=== PATIENT | female | born 1980 | race Caucasian/White ===

== ENCOUNTER → 2016-06-07 | Outpatient (CLI) | payer OTHER ==
[~2016-06-07] MED LIST: ALBUAER INH; EPP3/2 IM
--- NOTE | 2016-06-07 17:15 | DIAGNOSTIC IMAGING REPORT ---
MRI OF THE BRAIN WITHOUT CONTRAST CLINICAL HISTORY: Multiple sclerosis. COMPARISON STUDY: MRI of the brain December 12, 2014. TECHNIQUE: Utilizing a 1.5 Mariah magnet and dedicated coil, multiplanar, multiecho imaging of the brain was performed without IV contrast. Thin cut FLAIR imaging was performed according to the MS protocol. No intravenous contrast was administered due to IV dye allergy. FINDINGS: Ventricular system is normal. Basilar cisterns are patent. There are no extra-axial collections. There has been interval development of several T2 hypertense foci within the white matter consistent with demyelinating plaques since MRI of December 12, 2014. The largest new plaque measures 1.7 cm and is within the left frontal lobe shown on axial image 16 of 22. There is also a new 1.1 cm plaque within the left parietal lobe shown on image 13 and an additional new 0.7 cm plaque within the left parietal lobe shown on image 14. Several old plaques are again noted. The conspicuity of several these has diminished since MRI of December 12, 2014. There is also a new 0.9 cm T2 hyperintense focus within the left posterior aspect of the michaela. Active demyelination is difficult to assess for on this unenhanced examination but the pontine plaque demonstrates possible restricted diffusion. Calvarial signal is maintained. Orbits are unremarkable. IMPRESSION: Interval development of several demyelinating plaques since MRI of December 12, 2014, the largest of which is a 1.7 cm left frontal lobe plaque. In addition, a new 0.9 cm plaque within the left posterior michaela is present. Active demyelination is difficult to assess for given the lack of postcontrast imaging however the pontine plaque demonstrates possible mild restricted diffusion which could indicate active demyelination. Electronically signed by: Keanu Chavarria M.D. 06/07/2016 5:14 PM Dictated Date/Time: 06/07/2016 5:06 PM
--- NOTE | 2016-06-07 17:26 | DIAGNOSTIC IMAGING REPORT ---
MRI OF THE CERVICAL SPINE WITHOUT CONTRAST CLINICAL HISTORY: Multiple sclerosis. COMPARISON: MRI of the cervical spine September 08, 2012. TECHNIQUE: Utilizing a 1.5 Mariah magnet and dedicated coil, multiplanar, multiecho imaging of the cervical spine was performed without IV contrast. No IV contrast was administered due to gadolinium IV contrast allergy. FINDINGS: Alignment of the cervical spine is anatomic. This study is mildly compromised by motion artifact. Vertebral body heights are maintained. There is no intracanalicular mass or fluid collection. Cervical cord signal is suboptimally assessed on this exam. A small focus of increased T2 signal within the right posterior aspect the cord at the C4-C5 level is noted. This has decreased in conspicuity since exam of September 08, 2012. No definite additional areas of signal abnormality are identified within the cervical cord. The central canal and neural foramen are patent with exception of mild narrowing of the left C5-C6 neural foramen due to uncovertebral hypertrophy. An area of demyelination within the michaela is better depicted on the MRI the brain. IMPRESSION: 1. No new areas of demyelination within the cervical cord. 2. Decreased conspicuity of the plaque within the cord at the C4-C5 level since MRI of September 08, 2012. 3. Mild degenerative changes of the cervical spine. Electronically signed by: Keanu Chavarria M.D. 06/07/2016 5:25 PM Dictated Date/Time: 06/07/2016 5:19 PM
== END | disposition home or self-care (01) ==
LOC: C.MRIBC 15:36
PROVIDERS: ATTEND Psychiatry & Neurology Neurology
DX: G35 Multiple sclerosis (principal)

== ENCOUNTER → 2016-06-11 | Outpatient (CLI) | payer OTHER ==
[2016-06-11 17:22] LABS: ALT/SGPT 29 U/L (12-78); AST/SGOT 10 U/L (15-37); BLOOD UREA NITROGEN 11 mg/dl (7-18); BUN/CREATININE RATIO 11.2 (10-20); CALCIUM 8.9 mg/dl (8.5-10.1); CARBON DIOXIDE 26 mmol/L (21-32); CHLORIDE 100 mmol/L (98-107); GLUCOSE 200 mg/dl (70-99); POTASSIUM 4.5 mmol/L (3.5-5.1); SODIUM 138 mmol/L (136-145)
[2016-06-11 17:25] LABS: ALB/GLOB RATIO 1.1 (0.9-2); ALKALINE PHOSPHATASE 60 U/L (45-117); BASO % 0.1 %; BASO ABS # 0.01 K/uL (0-0.2); COMPLETE YES; EOS % 0.1 %; HEMATOCRIT 43.2 % (37-47); IG% 0.9 %; LYMPH % 5.4 %; LYMPH ABS # 0.67 K/uL (1.2-3.4); MEAN CELL VOLUME 90.6 fL (80-100); MEAN CORPUSCULAR HGB CONC 34.3 g/dl (32-36); MEAN PLATELET VOLUME 10.5 fL (7.4-10.4); MONO % 0.4 %; NEUT % 93.1 %; PLATELET COUNT 242 K/uL (130-400); RED BLOOD COUNT 4.77 M/uL (4.2-5.4); WHITE BLOOD COUNT 12.33 K/uL (4.8-10.8)
== END | disposition home or self-care (01) ==
LOC: C.LABBC 13:46
PROVIDERS: ATTEND Psychiatry & Neurology Neurology
DX: G35 Multiple sclerosis (principal)

== ENCOUNTER → 2016-07-01 | Outpatient (CLI) | payer OTHER | END | disposition home or self-care (01) | LOC: C.CPL 12:26 | PROVIDERS: ATTEND Psychiatry & Neurology Neurology | DX: J45.909 Unspecified asthma, uncomplicated (principal) ==

== ENCOUNTER → 2016-07-18 | Outpatient (CLI) | payer OTHER ==
[2016-07-18 10:47] LABS: BASO ABS # 0.05 K/uL (0-0.2); COMPLETE YES; EOS % 2.5 %; HEMATOCRIT 40.5 % (37-47); LYMPH % 25.3 %; LYMPH ABS # 1.32 K/uL (1.2-3.4); MEAN CELL VOLUME 89.2 fL (80-100); MEAN CORPUSCULAR HEMOGLOBIN 30.4 pg (25-34); MEAN CORPUSCULAR HGB CONC 34.1 g/dl (32-36); MEAN PLATELET VOLUME 10.4 fL (7.4-10.4); MONO % 8.6 %; NEUT % 62.6 %; PLATELET COUNT 199 K/uL (130-400); RED BLOOD COUNT 4.54 M/uL (4.2-5.4); WHITE BLOOD COUNT 5.22 K/uL (4.8-10.8)
== END | disposition home or self-care (01) ==
LOC: C.LABBC 07:47
PROVIDERS: ATTEND Physician Assistant
DX: G35 Multiple sclerosis (principal)

== ENCOUNTER → 2016-11-04 | Outpatient (CLI) | payer OTHER ==
--- NOTE | 2016-11-04 11:35 | DIAGNOSTIC IMAGING REPORT ---
CERVICAL WITHOUT CONTRAST CLINICAL HISTORY: 36 years-old Female presenting with multiple sclerosis. TECHNIQUE: Multisequence, multiplanar MR imaging of the cervical spine was performed without the use of intravenous contrast. IV contrast: None. COMPARISON: 06/07/2016. FINDINGS: Localizer images: Unremarkable. Vertebral bodies maintain normal height, alignment, and signal intensity. Intervertebral disc spaces maintained. Minimal uncovertebral hypertrophy at C5-6 results in nonsignificant left neural foraminal narrowing. No other significant degenerative change. No significant neural foraminal or spinal canal narrowing. Spinal cord maintains normal morphology. Previously noted abnormal signal within the spinal cord at the right posterior paramedian aspect of the cord at C4-5 is unchanged in extent (series 6 image 15). No new lesion. Craniocervical junction unremarkable for T2 hyperintense lesion noted in the michaela as on prior exam. Paraspinal soft tissues remarkable for few cysts within the right lobe of the thyroid. Paraspinal musculature normal. IMPRESSION: 1. No new areas of demyelination within the cervical cord. 2. Stable appearance of the lesion at C4-5. 3. Please see separately dictated MR of the brain for intracranial findings. Electronically signed by: Nasir Galvan M.D. 11/04/2016 11:34 AM Dictated Date/Time: 11/04/2016 11:25 AM
--- NOTE | 2016-11-04 12:18 | DIAGNOSTIC IMAGING REPORT ---
BRAIN W/O FOR MS CLINICAL HISTORY: G35 Multiple [id number] mental status change. TECHNIQUE: MRI multi axial acquisition COMPARISON STUDY: 06/07/2016 FINDINGS: The examination shows in general improved signal characteristics as compared to the prior study although a least one focus is increased in prominence. Several small foci of new increased signal are present. The largest focus of increased signal within the left frontal lobe is diminished by 50% in terms of overall volume. A small new focus is identified left paraventricular as well as right periventricular region best seen coronal image 15 as well as 14. These, however do not show significant alteration in signal on diffusion images. The left central pontine focus is considered generally stable although somewhat diminished in signal on the transaxial diffusion images. Smaller foci of increased signal within the optic radiations on the left are at least mildly improved. A new focus is identified within the right optic radiations. These again show no significant increase in diffusion weighted signal. Internal artery canals remains stable. There is no ventricular midline shift. IMPRESSION: 1. Mixed findings compared to the prior study although the overall impression of this study is one of slight improvement in signal characteristics of the largest foci of altered signal, although there are several smaller new foci of increased signal primarily in the right periventricular region. 2. The largest foci within the left paraventricular region are diminished in prominence, although several new or interval foci are identified primarily in the right paraventricular region. 3. Diffusion-weighted images are in general improved from the prior study. The above report was generated using voice recognition software. It may contain grammatical, syntax or spelling errors. Electronically signed by: Vinicio Baer M.D. 11/04/2016 12:17 PM Dictated Date/Time: 11/04/2016 12:08 PM
[2016-11-04 12:35] LABS: BLOOD UREA NITROGEN 9 mg/dl (7-18); BUN/CREATININE RATIO 11.5 (10-20); CALCIUM 8.9 mg/dl (8.5-10.1); CARBON DIOXIDE 28 mmol/L (21-32); CHLORIDE 106 mmol/L (98-107); CREATININE 0.78 mg/dl (0.60-1.20); GLUCOSE 89 mg/dl (70-99); POTASSIUM 4.3 mmol/L (3.5-5.1); SODIUM 140 mmol/L (136-145)
== END | disposition home or self-care (01) ==
LOC: C.MRI 09:47
PROVIDERS: ATTEND Physician Assistant
DX: G35 Multiple sclerosis (principal)

== ENCOUNTER → 2016-11-27 | Outpatient (CLI) | payer OTHER ==
--- NOTE | 2016-11-27 14:53 | DIAGNOSTIC IMAGING REPORT ---
THORACIC SPINE WITHOUT HISTORY: Demyelinating disorder MS TECHNIQUE: Multiplanar multisequence MRI of the thoracic spine was performed without the use of contrast. COMPARISON: None. FINDINGS: Mild degenerative disc change throughout. Signal characteristics of the vertebral bodies are unremarkable. Linear focus of increased signal in the T2-T3 level measuring 1.1 cm in greatest length with transaxial measurement of 3 mm. This is within the central cord. No additional foci identified. Transaxial images are negative for disc herniation or spinal stenosis. IMPRESSION: Increased signal central cord at the T2-T3 level measuring a 1.1 x 0.3 cm. Remainder of the thoracic cord is unremarkable . This focus appears represent a demyelinating disorder focus with no additional abnormalities present. The above report was generated using voice recognition software. It may contain grammatical, syntax or spelling errors. Electronically signed by: Vinicio Baer M.D. 11/27/2016 2:52 PM Dictated Date/Time: 11/27/2016 2:46 PM
== END | disposition home or self-care (01) ==
LOC: C.MRIBC 13:42
PROVIDERS: ATTEND Physician Assistant
DX: G35 Multiple sclerosis (principal)

== ENCOUNTER → 2016-12-10 | Outpatient (CLI) | payer OTHER ==
[2016-12-10 14:17] LABS: LYME DISEASE AB IGM NEG (NEG)
[2016-12-10 14:27] LABS: LYME DISEASE AB IGG NEG (NEG)
== END | disposition home or self-care (01) ==
LOC: C.LABBC 10:44
PROVIDERS: ATTEND Psychiatry & Neurology Neurology
DX: G35 Multiple sclerosis (principal); E55.9 Vitamin D deficiency, unspecified; R53.83 Other fatigue

== ENCOUNTER → 2017-06-03 | Outpatient (CLI) | payer OTHER | END | disposition home or self-care (01) | LOC: C.LABBC 13:44 | PROVIDERS: ATTEND Psychiatry & Neurology Neurology | DX: G35 Multiple sclerosis (principal); E55.9 Vitamin D deficiency, unspecified ==

== ENCOUNTER 2021-12-07 09:47 | Inpatient (IN) ==
--- NOTE | 2021-11-30 15:30 | PAT Medication Instructions ---
Medication Instructions Date of Service November 30, 2021 Home Medications Medication Instructions Recorded ondansetron 4 mg disintegrating 4 - 8 mg PO BID PRN Nausea 30 days 09/21/20 tablet #30 tabs cholecalciferol (vitamin D3) 1,250 50,000 unit PO WEEKLY 30 days #4 02/12/21 mcg (50,000 unit) tablet tabs methocarbamol 500 mg tablet 250 - 500 mg PO BID PRN Muscle 06/04/21 Spasm #60 tabs meclizine 25 mg tablet 25 mg PO TID PRN dizziness #90 tabs 06/25/21 albuterol sulfate 90 mcg/actuation aerosol inhaler 2 puffs inhalation QID PRN Shortness Of Breath Or Wheezing epinephrine 0.3 mg/0.3 mL injection, auto-injector (EpiPen) 0.3 mg IM DIRECTED PRN Allergic Reaction etonogestrel 0.12 mg-ethinyl estradiol 0.015 mg/24 hr vaginal ring (EluRyng) 1 vag ring vaginal DIRECTED ondansetron 4 mg disintegrating tablet 4 - 8 mg PO BID PRN Nausea pentosan polysulfate sodium 100 mg capsule (Elmiron) 100 mg PO TID PRN Other cholecalciferol (vitamin D3) 1,250 mcg (50,000 unit) tablet 50,000 unit PO WEEKLY methocarbamol 500 mg tablet 250 - 500 mg PO BID PRN Muscle Spasm meclizine 25 mg tablet 25 mg PO TID PRN dizziness acetaminophen 500 mg tablet 500 mg PO Q6H PRN Pain multivitamin 2 tab PO QAM Continue as directed epinephrine 0.3 mg/0.3 mL injection, auto-injector (EpiPen) 0.3 mg IM DIRECTED PRN Allergic Reaction (if needed) etonogestrel 0.12 mg-ethinyl estradiol 0.015 mg/24 hr vaginal ring (EluRyng) 1 vag ring vaginal DIRECTED (unless told otherwise by surgeon) ASK your surgeon for instructions pentosan polysulfate sodium 100 mg capsule (Elmiron) 100 mg PO TID PRN Other DO NOT take the morning of surgery cholecalciferol (vitamin D3) 1,250 mcg (50,000 unit) tablet 50,000 unit PO WEEKLY methocarbamol 500 mg tablet 250 - 500 mg PO BID PRN Muscle Spasm multivitamin 2 tab PO QAM Take morning of surgery With a small sip of water, OTHERWISE NOTHING TO EAT OR DRINK AFTER MIDNIGHT: albuterol sulfate 90 mcg/actuation aerosol inhaler 2 puffs inhalation QID PRN Shortness Of Breath Or Wheezing (use if needed; please bring rescue inhaler with you to hospital day of surgery if possible) ondansetron 4 mg disintegrating tablet 4 - 8 mg PO BID PRN Nausea (if needed) meclizine 25 mg tablet 25 mg PO TID PRN dizziness (if needed) acetaminophen 500 mg tablet 500 mg PO Q6H PRN Pain (if needed) Take evening before surgery albuterol sulfate 90 mcg/actuation aerosol inhaler 2 puffs inhalation QID PRN Shortness Of Breath Or Wheezing (if needed) ondansetron 4 mg disintegrating tablet 4 - 8 mg PO BID PRN Nausea (if needed) methocarbamol 500 mg tablet 250 - 500 mg PO BID PRN Muscle Spasm (if needed) meclizine 25 mg tablet 25 mg PO TID PRN dizziness (if needed) acetaminophen 500 mg tablet 500 mg PO Q6H PRN Pain (if needed) Other Notes If you have any questions please call us at [phone] or [phone] or [phone] or [phone]
--- NOTE | 2021-12-03 10:18 | Anesthesiology Consultation ---
Date of Service December 03, 2021 Assessment & Plan (1) Encounter for pre-operative examination: - Neurology office visit (09/11/21): "As you know, she was recently seen by the MS clinic. She notes she is undergoing further work up to determine as to whether she has MS or something that mimics MS. She received IV steroids approximately one month ago and notes this has helped her weakness significantly. Prior to this, she was on oral prednisone. She recently saw an carry in worker and was told she has "three holes in her left retina." She was recommended to see a retina specialist and also has an appointment pending with an milk deliverer.. 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 She has also tried and failed Avonex, Copaxone, Glatiramer acetate, and Tecfidera. Gilenya was deferred due to bradycardia. Kesimpta was defered as she is NELL virus positive.. She developed very bad gastritis with her last IV Solumol treatment and had to go to the ED for a Pepcid cocktail, which did help.. At this point in time, we will await further input from the MS clinic. I do advise she follow with ophthalmology and a retina specialist. She may continue all current Rx as advised. She is to continue to follow with all current providers and their recommendations as advised. We will follow up with her in 2-3 months, and sooner if needed." She was seen by [facility] neurology as second opinion. She states that they reviewed her prior imaging/medications and do feel her symptoms at consistent with MS and recommended trial of Vumerity. Patient states she declined this at this time as she had had reaction with similar derivative MS treatment in the past and wishes to await further evaluation/recommendations at next visit. She feels her MS is currently well controlled- does have occasional muscle spasticity. - COVID screening: Per assessment on 12/03: No known COVID-19 positive contacts or current COVID-19 related symptoms. Travel screen negative. Patient was Covid positive 10/13/21 ([facility] urgent care/report scanned into [employer]). Symptoms at time: cough, sore throat, congestion, nausea, headache, fever > resolved. Pt can proceed as scheduled without additional preop Covid testing or additional Covid contact precautions per 90 days protocol. - Preop test negative (12/03 at [facility]) - Hx "severe" PONV: At anesthesiologist discretion AM DOS if scope patch/preop antiemetics to be given. Chart Review Chart Review: Acceptable Risk for Surgery (pending evaluation AM DOS) and Patient seen in Pre Admission Testing Teaching & Discussion Pre-Anesthesia Teaching/Discussion Notes: Instructed NPO after midnight before surgery,except medications with 15 cc of water. Medication instructions provided according to the [facility] guidelines. History Surgery Operation Date: 12/07/21 13:30 Proposed Procedures p Total Abdominal Hysterectomy - Lucian Richards MD Height/Weight Height: 5 ft 8 in Weight: 115.9 kg Allergies Allergy/AdvReac Type Severity Reaction Status Date / Time peanut Allergy Severe Throat Verified 11/30/21 15:35 closing Sulfa (Sulfonamide Allergy Mild Rash Verified 11/30/21 15:35 Antibiotics) Gadolinium-Containing Allergy Unknown Dyspnea, Verified 11/30/21 15:35 Contrast Medi red rash gluten Allergy Unknown Celiac- GI Verified 11/30/21 15:35 upset pneumococcal vaccine Allergy Unknown Swelling, Verified 11/30/21 15:35 redness, pain soy Allergy Unknown GI symptoms Verified 11/30/21 15:35 wheat Allergy Unknown GI, Rash, Verified 11/30/21 15:35 MS flare (unable to move), resp DI clavulanic acid AdvReac Mild Nausea Verified 11/30/21 15:35 codeine AdvReac Mild Nausea/Vomi Verified 11/30/21 13:22 ting morphine AdvReac Unknown GI distress Verified 11/30/21 15:35 Medications Home Medications Medication Instructions Recorded Confirmed Last Taken albuterol sulfate 90 mcg/actuation 2 puffs inhalation QID PRN 11/06/18 11/30/21 Unknown aerosol inhaler Shortness Of Breath Or Wheezing epinephrine 0.3 mg/0.3 mL 0.3 mg IM DIRECTED PRN Allergic 11/06/18 11/30/21 Unknown injection, auto-injector (EpiPen) Reaction etonogestrel 0.12 mg-ethinyl 1 vag ring vaginal DIRECTED 10/09/19 11/30/21 Unknown estradiol 0.015 mg/24 hr vaginal ring (EluRyng) ondansetron 4 mg disintegrating 4 - 8 mg PO BID PRN Nausea 30 days 09/21/20 11/30/21 Unknown tablet #30 tabs pentosan polysulfate sodium 100 mg 100 mg PO TID PRN Other 11/14/20 11/30/21 Unknown capsule (Elmiron) cholecalciferol (vitamin D3) 1,250 50,000 unit PO WEEKLY 30 days #4 02/12/21 11/30/21 Unknown mcg (50,000 unit) tablet tabs methocarbamol 500 mg tablet 250 - 500 mg PO BID PRN Muscle 06/04/21 11/30/21 Unknown Spasm #60 tabs meclizine 25 mg tablet 25 mg PO TID PRN dizziness #90 tabs 06/25/21 11/30/21 Unknown acetaminophen 500 mg tablet 500 mg PO Q6H PRN Pain 11/30/21 11/30/21 Unknown multivitamin 2 tab PO QAM 11/30/21 11/30/21 Unknown Past Medical History Medical History Adjustment disorder with depressed mood Allergic rhinitis Asthma Atrial premature beats Bradycardia, drug induced Celiac disease Depression with anxiety Hx Tornado's syndrome Per records, per patient told "long jaw bone" during workup for tonsillectomy (+ clicking, no locking or ROM limitations with jaw) Hearing loss History of COVID-19 Dx 10/13/21 ([facility] urgent care/report scanned into [employer]) Symptoms at time: cough, sore throat, congestion, nausea, headache, fever > resolved Dx 03/2021 ([facility]) Interstitial cystitis Multiple sclerosis Follows with Dr. Villatoro/Maranda Jean ([facility] [place]) Muscle spasm Neuropathic pain From MS (right side predominant, trunk, right lower leg) Obesity Otosclerosis Vertigo Exercise / Class Metabolic Activity II 4-5 Yardwork/Stairs/Walk up hill (one FS (no CP, rare SOB)) Past Family History Family History Grandmother (Maternal) Myocardial infarction Grandmother (Paternal) Brain tumor Denies family history of Ovarian cancer Prostate cancer Breast cancer Colorectal cancer Past Surgical History Surgical History History of colonoscopy x2 History of esophagogastroduodenoscopy (EGD) History of wisdom tooth extraction Hx of tonsillectomy Nausea and vomiting after administration of anesthetic agent "Severe" S/P dilation and curettage S/P foot surgery, right S/P laparoscopy S/P shoulder surgery S/P wisdom tooth extraction Past Anesthesia History Other (Perioperative bradycardia during tonsillectomy (20+ years ago)) History of PONV History of PONV ("Severe") and Hx of Motion Sickness Social History Smoking Status: Never smoker Do You Dip or Chew Tobacco: No Hx Alcohol Use: No Hx Substance Use: No Review of Systems Patient denies chest pain, shortness of breath, dyspnea on exertion, fever, chills, cough, wheezing, palpitations. Physical Exam Vital Signs VITALS BP 144/82 P 70 TEMP 98.9 SP02 97%RA RESP 16 PHYSICAL Full cervical extension range of motion. Full TMJ range of motion. TMD 4 finger breaths Mallampati Score 1 (cap/crown on molar) Dentition: intact Lungs: clear throughout to auscultation Cardiac: regular rate and rhythm, no murmurs noted Spine: normal Carotid arteries: negative bruit Extremities: no edema Lab Results Anesthesia Preop Results Results Anesthesia Widget: WBC 5.00 K/ul (4.8-10.8) 12/03/21 Hgb 14.2 g/dl (12.0-16.0) 12/03/21 Hct 42.8 % (34.1-44.9) 12/03/21 Plt 241 K/uL (130-400) 12/03/21 Na 137 mmol/L (136-145) 12/03/21 K 4.2 mmol/L (3.5-5.1) 12/03/21 Cl 104 mmol/L (98-107) 12/03/21 CO2 26 mmol/L (21-32) 12/03/21 BUN 12 mg/dl (6-23) 12/03/21 Creat 0.75 mg/dl (0.6-1.2) 12/03/21 Glucose Level 82 mg/dl (70-99(Fasting)) 12/03/21 PT 10.5 Seconds (9.0-12.0) 12/03/21 PTT 24.9 Seconds (21.0-31.0) 12/03/21 INR 1.0 (0.9-1.1) 12/03/21 Urine Test Negative (Negative) 12/03/21 Blood Type A Positive 12/03/21 Antibody Screen NEGATIVE 12/03/21 Testing Electrocardiogram Date: 08/24/21 NSR at 64bpm. Possible LAE. No significant change compared to 10/09/2019 per destaticizer feeder review.
[~2021-12-07 09:47] MED LIST changes: -ALBUAER INH; -EPP3/2 IM; +LR 15ML/HR IV SCH; +cefOXitin 2,000 MG in DEXTROSE 5% 50 ML IV SCH
--- NOTE | 2021-12-07 10:30 | History & Physical Bridge Note ---
Date of Service December 07, 2021 History & Physical Bridge Note I have examined the patient, reviewed the History & Physical and in the interval since the performance of the History & Physical I have noted the following changes of clinical significance: no changes noted
[2021-12-07] MEDS ORDERED: HYDROmorphone INJ 2 MG/ML SYR/VIAL ONE (10:44)
[2021-12-07] MEDS ORDERED: ONDANSETRON INJ 2 MG/ML 2 ML VIAL ONE (10:44)
[2021-12-07] MEDS ORDERED: LIDOCAINE 2% MPF LOCAL 5 ML VIAL INFIL ONE (10:44)
[2021-12-07] MEDS ORDERED: PROPOFOL IV EMULSION 10 MG/ML 20 ML VIAL IV ONE (10:44)
[2021-12-07] MEDS ORDERED: MIDAZOLAM HCL 1 MG/ML 2ML VIAL ONE (10:44)
[2021-12-07] MEDS ORDERED: ROCURONIUM BROMIDE 10 MG/ML 5 ML VIAL IV ONE (10:44)
[2021-12-07] MEDS ORDERED: DEXAMETHASONE SOD INJ 4 MG/ML VIAL ONE (10:44)
[2021-12-07] MEDS ORDERED: NEOSTIGMINE METHYLSULFATE 1 MG/ML 10ML VIAL ONE (10:48)
[2021-12-07] MEDS ORDERED: GLYCOPYRROLATE 0.2 MG/ML VIAL ONE (10:48)
[2021-12-07] MEDS ORDERED: REMIFENTANIL HCL 1 MG VIAL ONE ×2 (10:52→12:09)
[2021-12-07] MEDS ORDERED: ACETAMINOPHEN 1000 MG/100 ML IV IV ONE (10:53)
[2021-12-07 11:00] LABS: Pregnancy Test, Serum Negative (Negative)
[2021-12-07] MEDS ORDERED: SCOPOLAMINE 1 MG TDSY TD SCH (11:00)
[2021-12-07] MEDS ORDERED: HEPARIN (PORCINE) 1000 UNIT/ML 10 ML (CATH LAB USE ONLY) ONE (11:05)
[2021-12-07] MEDS ORDERED: fentaNYL citrate 100 MCG/2 ML VIAL ONE ×2 (11:11→12:06)
[2021-12-07] MEDS ORDERED: FAMOTIDINE/PF 20 MG/2 ML VIAL IV ONE (11:47)
[2021-12-07] MEDS ORDERED: KETAMINE 50 MG/5 ML SYRINGE ONE (11:47)
[2021-12-07] MEDS ORDERED: METOCLOPRAMIDE HCL INJ 5 MG/ML 2 ML VIAL ONE (11:54)
[2021-12-07] MEDS ORDERED: KETOROLAC 30 MG/ML VIAL ONE (13:03)
--- NOTE | 2021-12-07 13:54 | Post Operative Brief Note ---
Immediate Post Op Note v1 Date of Surgery December 07, 2021 Pre & Post Diagnosis Operation Date: 12/07/21 11:10 Pre-Op Diagnosis: dyspareunis, severe pelvic pain, severe dysmenorrhea Post-Op Diagnosis: dyspareunis, severe pelvic pain, severe dysmenorrhea I identified the patient and participated in the time-out.: Yes Procedure Operation Date: 12/07/21 11:10 Actual Procedures p Total Abdominal Hysterectomy(Not Applicable) - Lucian Richards MD Surgeon Lucian Richards MD Hand [employer]ed Circuit [employer] Assembler Leland Estimated Blood Loss 100 Findings Consistent with Post-Op Diagnosis ovarian adhesions endometriosis Drains Santoyo Catheter and Daniella Drain Anesthesia Type General Complications none
[2021-12-07] MEDS ORDERED: HYDROmorphone INJ 1 MG/ML SYRINGE ONE (14:16)
[2021-12-07] MEDS ORDERED: PROMETHAZINE HCL 12.5 MG in SODIUM CHLORIDE 0.9% 50 ML IV PRN (14:17)
[2021-12-07] MEDS ORDERED: ATROPINE SULFATE 0.1 MG/ML 10ML SYR IV PRN (14:17)
[2021-12-07] MEDS ORDERED: HYDROmorphone INJ 2 MG/ML SYR/VIAL IV PRN (14:17)
[2021-12-07] MEDS ORDERED: ePHEDrine sulfate 50 MG/ML AMP IV PRN (14:17)
[2021-12-07] MEDS ORDERED: ONDANSETRON INJ 2 MG/ML 2 ML VIAL IV PRN (14:17)
[2021-12-07] MEDS ORDERED: NALOXONE HCL 0.4 MG/1 ML VIAL/CARP IV PRN ×2 (14:17→18:06)
[2021-12-07] MEDS ORDERED: LABETALOL HCL IV 5 MG/ML 20ML IV PRN (14:17)
[2021-12-07] MEDS ORDERED: FLUMAZENIL 0.1 MG/1 ML 10 ML VIAL IV PRN (14:17)
[2021-12-07] MEDS: HYDROmorphone INJ 1 MG/ML SYRINGE ONE (14:31)
[2021-12-07] MEDS ORDERED: HYDROmorphone INJ 0.5 MG/0.5 ML SYR IV SCH (14:45)
--- NOTE | 2021-12-07 14:58 | Anesthesiology Progress Note ---
Date of Service December 07, 2021 Anesthesia Post Procedure Vital Signs Vital Signs: Temp Pulse Resp BP Pulse Ox O2 Del Method O2 Flow Rate 12/07/21 14:50 51 L 14 127/78 98 Nasal Cannula 2 12/07/21 14:40 64 16 140/70 100 Oxymask 2 12/07/21 14:30 49 L 16 128/72 98 Oxymask 2 12/07/21 14:20 65 20 120/69 99 Oxymask 2 12/07/21 14:10 82 14 145/70 H 99 Oxymask 4 12/07/21 14:03 36.3 C L 74 16 139/74 100 Oxymask 4 12/07/21 10:47 37.0 C 77 20 160/91 H 97 Room Air Pain Intensity Abdomen: Pain Intensity: 9 Transfer of Care Handoff Completed per policy Notes Mental Status: alert / awake / arousable Patient Amnestic to Procedure: Yes Nausea / Vomiting: adequately controlled Pain: adequately controlled Airway Patency, RR, SpO2: stable & adequate BP & HR: stable & adequate Hydration State: stable & adequate Anesthetic Complications: no major complications apparent
--- NOTE | 2021-12-07 15:08 | Anesthesiology Progress Note ---
Date of Service December 07, 2021 Anesthesia Post Procedure Vital Signs Vital Signs: Temp Pulse Resp BP Pulse Ox O2 Del Method O2 Flow Rate 12/07/21 15:00 37.1 C 52 L 14 140/74 97 Nasal Cannula 2 12/07/21 14:50 51 L 14 127/78 98 Nasal Cannula 2 12/07/21 14:40 64 16 140/70 100 Oxymask 2 12/07/21 14:30 49 L 16 128/72 98 Oxymask 2 12/07/21 14:20 65 20 120/69 99 Oxymask 2 12/07/21 14:10 82 14 145/70 H 99 Oxymask 4 12/07/21 14:03 36.3 C L 74 16 139/74 100 Oxymask 4 12/07/21 10:47 37.0 C 77 20 160/91 H 97 Room Air Pain Intensity Abdomen: Pain Intensity: 9 Transfer of Care Handoff Completed per policy Notes Mental Status: alert / awake / arousable Patient Amnestic to Procedure: Yes Nausea / Vomiting: adequately controlled Pain: adequately controlled Airway Patency, RR, SpO2: stable & adequate BP & HR: stable & adequate Hydration State: stable & adequate Anesthetic Complications: no major complications apparent
--- NOTE | 2021-12-07 15:30 | Operative Report (OR) ---
DATE OF PROCEDURE: 12/07/2021. PROCEDURE: Total abdominal hysterectomy, suspension of vaginal cuff. INDICATIONS FOR SURGERY: Pelvic pain, severe dysmenorrhea, prior laparoscopic diagnosis of endometri osis. PREOPERATIVE DIAGNOSIS: Symptomatic endometriosis, failed conservative therapy. SURGEON: Christiane Richards MD. ENGRAVER AUTOMATIC: Julito Ha MD. ESTIMATED BLOOD LOSS: 100 mL ANESTHESIA: General. OPERATIVE FINDING AND PROCEDURE: The patient was brought to the OR table, correctly identified by brittney guadarrama and conversation. General anesthesia was administered. Lower abdomen was painted with an alco hol based sterilizing solution. Vagina was prepped with a Betadine prep and then a Santoyo catheter wa s inserted aseptically in the bladder, connected to gravity drainage. Compression stockings were darryn lied. The patient was draped in the usual sterile fashion. Pfannenstiel incision was made, carried down to the anterior fascia by sharp dissection. Hemostasis was secured by electrocauterization. Fa scia was incised transversely from the underlying muscle by blunt and sharp dissection. R ecti muscles were in the midline, exposing the peritoneum, which was carefully raised and e ntered. An O'Aleksey-O'Reina self-retaining retractor was inserted into the abdominal cavity, 4-5 laparotom y pads were used to retract the intestines and provide adequate exposure of the pelvic cavity what co uld be seen is a normal size uterus, ovaries; left ovary was fixed to the lateral pelvic wall. We archuleta d to free up the left ovary. Then, we ligated the round ligaments on either side by clamping close t o the uterus with a Sun then ligating distally with a transfixion suture chromic catgut and a silk tie. We then made an incision above the vesicouterine fold and advanced the bladder out of the opera tive field. There were some endometriosis involving the bladder on the patient's left side and some of the planes were absent. We had to do like blunt dissection. We then punched through the posterio r leaf of the broad ligament posteriorly on both sides and clamped the ovarian tube and ligament. We then also tacked this with a transfixion suture and an additional silk tie for hemostasis. We ske letonized uterine vessels, clamped with a curved Liza, cut with a stump and doubly ligated with a c hromic gut suture. Then, we advanced the bladder out of the operative field and used a curved Liza to slide off the cervix, cut with a stump and ligate with a chromic gut suture. This was done in 3 steps because of the length of the cervix. Then, we shelled the cervix out with electrocautery, silvia ving the surgical specimen consisting of uterus and cervix. The angles of the vaginal cuff were sutu re ligated to the stumps of the cardinal ligaments on each side with a chromic gut suture. Then, the angles of the vaginal cuff were approximated front to back with a zvcyuh-ph-qyoos suture, which appr oximated the edges of the cuff. The center of the cuff was whipstitched open and we had to restitch it once or twice to get hemostasi s. We then placed a Daniella drain with a safety pin into the vagina and then the end out into the cu l-de-sac. Reperitonealization was accomplished by first of all tying the round ligaments to the vagi nal cuff and thus elevating the cuff and then approximating the peritoneum front to back from the rig ht down to the center and then from the left down to the center on the left side where the ovary had been fixed to the lateral pelvic wall. There was some bleeding. We had to basically dissect out and identify the ureter to make sure it was not compromised. After doing that, we completed the reperit onealization on that side, tied the two ends of the suture together, put the end of the Daniella drain into the cul-de-sac, washed everything clean. Hemostasis was excellent. Packs were removed. Caref ul anatomical approximation of the anterior abdominal wall was performed. Peritoneum was closed with a mattress suture of chromic catgut. Recti muscles were approximated with interrupted [id number] ht suture chromic catgut. Fascia was closed with continuous interlocking suture of Vicryl on each si de tied in the midline. Subcutaneous was applied approximated with running plain and skin edges were approximated with staple clips. Job ID: [id number]
[2021-12-07] MEDS ORDERED: PROMETHAZINE HCL 25 MG in SODIUM CHLORIDE 0.9% 50 ML IV PRN (15:48)
[2021-12-07] MEDS: CHECK SCOPOLAMINE PATCH PLACEMENT SCH (16:58)
[2021-12-07] MEDS: KETOROLAC 30 MG/ML VIAL IV PRN ×2 (17:41→23:47)
[2021-12-07] MEDS ORDERED: HYDROmorphone PCA 30 MG/30 ML IV PRN (18:06)
[2021-12-07] MEDS ORDERED: SODIUM CHLORIDE 0.9% 1000ML 1,000 ML IV SCH (18:15)
[2021-12-07] MEDS ORDERED: Nursing to Pharmacy Communication SCH (20:45)
[2021-12-07] MEDS ORDERED: METHOCARBAMOL 500 MG TABLET PO PRN (20:57)
[2021-12-07] MEDS: DOCUSATE SODIUM 100 MG CAP PO SCH (21:50)
[2021-12-07] MEDS: ONDANSETRON INJ 2 MG/ML 2 ML VIAL IV PRN (23:17)
[2021-12-08] MEDS ORDERED: ALBUTEROL HFA 8 GM INHALER INH SCH ×2 (01:00)
[2021-12-08] MEDS: ONDANSETRON INJ 2 MG/ML 2 ML VIAL IV PRN (04:01)
[2021-12-08] MEDS: CHECK SCOPOLAMINE PATCH PLACEMENT SCH ×2 (07:42→16:29)
[2021-12-08] MEDS: DOCUSATE SODIUM 100 MG CAP PO SCH ×2 (07:42→20:08)
[2021-12-08] MEDS: PENTOSAN POLYSULFATE SODIUM 100 MG CAP PO SCH ×4 (07:44→20:08)
[2021-12-08] MEDS: KETOROLAC 30 MG/ML VIAL IV PRN (07:45)
--- NOTE | 2021-12-08 09:09 | Obstetrical Progress Note ---
Date of Service December 08, 2021 Assessment & Plan Admission and Anticipated Discharge Date Admission Date: December 07, 2021 Subjective abdomen soft bowel sounds are present bandage is clean and dry no calf tenderness urine out put good vaginal bleeding scant Results & Data ([facility]) Vital Signs (Past 12 Hours) Vital Signs Temp Pulse Resp BP Pulse Ox 12/08/21 03:30 37.5 C 86 18 114/68 98 12/07/21 22:49 37.5 C 66 16 119/72 98
[2021-12-08] MEDS: SIMETHICONE 80 MG CHEW PO PRN ×2 (09:54→18:21)
[2021-12-08 09:57] LABS: Hematocrit (blood only) 37.6 % (34.1-44.9); Hemoglobin 12.4 g/dl (12.0-16.0)
[2021-12-08] MEDS: ACETAMINOPHEN 325 MG TAB PO PRN ×2 (12:04→19:33)
[2021-12-08] MEDS: IBUPROFEN 600 MG TAB PO PRN ×3 (14:35→22:22)
[2021-12-08] MEDS: ALBUTEROL HFA 8 GM INHALER INH PRN (20:08)
[2021-12-09] MEDS: SIMETHICONE 80 MG CHEW PO PRN (00:38)
[2021-12-09] MEDS: CHECK SCOPOLAMINE PATCH PLACEMENT SCH ×2 (00:38→07:33)
[2021-12-09] MEDS: IBUPROFEN 600 MG TAB PO PRN ×2 (03:27→10:39)
[2021-12-09] MEDS: ALBUTEROL HFA 8 GM INHALER INH PRN (06:28)
[2021-12-09] MEDS: DOCUSATE SODIUM 100 MG CAP PO SCH (07:32)
[2021-12-09] MEDS: ACETAMINOPHEN 325 MG TAB PO PRN (07:32)
[2021-12-09] MEDS: PENTOSAN POLYSULFATE SODIUM 100 MG CAP PO SCH (07:33)
--- NOTE | 2021-12-09 08:46 | Obstetrical Progress Note ---
Date of Service December 09, 2021 Assessment & Plan Admission and Anticipated Discharge Date Admission Date: December 07, 2021 Subjective abdomen soft and non tender incision is clean and dry no calf tenderness ambulating well kenny drain removed vaginal bleeding scant hgb Results & Data ([facility]) Vital Signs (Past 12 Hours) Vital Signs Temp Pulse Resp BP Pulse Ox 12/08/21 22:52 36.8 C 72 16 102/66 95
--- NOTE | 2021-12-09 09:18 | Discharge Summary (DS) ---
DATE OF DISCHARGE: 12/09/2021. HOSPITAL COURSE: The patient was admitted with a long history of pelvic pain secondary to endometrio sis. She was diagnosed with endometriosis over 15 years ago. This was done by diagnostic laparoscop y and peritoneal biopsy. At that time, she was know to have extensive endometriosis of the bladder o n the left side and the ovary was fixed to the lateral pelvic wall. Over the years, she has been idalmis caitlin conservatively multiple times. She has had two six-month courses of Lupron, many months of noret hindrone 5 mg daily, but eventually always the pelvic pain recurred and she was also accompanied by i rregular unpredictable bleeding. At this point, she requested total abdominal hysterectomy. The day of admission, she was taken to the OR where she underwent total abdominal hysterectomy with preservat ions of both ovaries. The left ovary was fixed to the lateral pelvic wall and had to be removed with blunt dissection freed up. Daniella drain was placed in the vagina and then a distal end was in the c ul-de-sac. Postoperatively, she did well, took about a little over 24 hours for bowel sounds to retu rn. Her incision was clean and dry. She remained afebrile. On the second postoperative day, she wa s ambulating well, eating well, afebrile. Hemoglobin was 12.4. The Daniella drain with a safety pin was removed from the vaginal cuff. She was able to manage her pain without narcotics. She actively tried to avoid narcotics because she gets severe nausea from it and she was discharged to be followed in home and office and told to call if she had temperature over 100 or any heavy bleeding and to stephany l for removal of miguelito. Job ID: [id number]
[2021-12-09] MEDS ORDERED: CALCIUM CARBONATE 500 MG CHEWABLE TAB PO STA (10:48)
[2021-12-09 11:19] VITALS: BP 113/72; TEMP 98.8; O2SAT 96
[2021-12-09 12:15] VITALS: PULSE 86
== END 2021-12-09 13:20 | disposition home or self-care (01) | DRG 743 ==
LOC: ASU 09:47 → 4E1 16:09
DX: N94.10 Unspecified dyspareunia; Z88.2 Allergy status to sulfonamides; Z88.5 Allergy status to narcotic agent; Z91.018 Allergy to other foods; Z88.7 Allergy status to serum and vaccine; Z91.010 Allergy to peanuts; N73.6 Female pelvic peritoneal adhesions (postinfective); Z98.890 Other specified postprocedural states; Z88.8 Allergy status to other drugs, medicaments and biological substances; Z86.001 Personal history of in-situ neoplasm of cervix uteri; Z91.041 Radiographic dye allergy status; N80.8 Other endometriosis; N80.0 Endometriosis of uterus; G35 Multiple sclerosis